=== PATIENT | female | born 1960 | race Caucasian/White ===

== ENCOUNTER 2018-02-08 08:15 | Inpatient (IN) | payer OTHER ==
[~2018-02-08] VITALS: Ht 154.9 cm; Wt 63.0 kg
[2018-02-08] MEDS ORDERED: CRESTOR10 MG PO (10:43)
[2018-02-11] MEDS ORDERED: NAPROXEN500 MG PO (09:04)
[2018-02-11] MEDS ORDERED: CODE1TAB37 PO (09:05)
== END 2018-02-11 11:35 | disposition home or self-care (01) | DRG 743 ==
LOC: O/R 02-10 06:23 → OB/GYN 02-10 08:15 → SURG 02-10 16:59
PROVIDERS: Obstetrics & Gynecology
PROC: 0UQF0ZZ Repair Cul-de-sac, Open Approach (ICD-10-PCS; 2018-02-10)
PROC: 0JQC0ZZ Repair Pelvic Region Subcutaneous Tissue and Fascia, Open Approach (ICD-10-PCS; 2018-02-10)
PROC: 0USG0ZZ Reposition Vagina, Open Approach (ICD-10-PCS; 2018-02-10)
PROC: 0TJB8ZZ Inspection of Bladder, Via Natural or Artificial Opening Endoscopic (ICD-10-PCS; 2018-02-10)
PROC: 0UT97ZZ Resection of Uterus, Via Natural or Artificial Opening (ICD-10-PCS; principal; 2018-02-10 09:15)
DX: D25.0 Submucous leiomyoma of uterus (principal); N72 Inflammatory disease of cervix uteri; N80.0 Endometriosis of uterus; N81.3 Complete uterovaginal prolapse